=== PATIENT | male | born 1965 | race Two or more races ===

== ENCOUNTER 2021-12-20 21:24 | Inpatient (IN) | payer BC, MEDICAID ==
[~2021-12-20] VITALS: Ht 190.5 cm; Wt 107.5 kg
[2021-12-20] MEDS ORDERED: SODIUM CHLORIDE 0.9% 1,000 ML IV ONE (21:45)
[2021-12-20] MEDS ORDERED: diphenhdrAMINE HCL 50 MG/1 ML VL IM ONE ×2 (21:45)
[2021-12-20] MEDS ORDERED: LORazepam 2MG/ML-1ML VIAL IM ONE ×2 (21:45)
[2021-12-20] MEDS ORDERED: LORazepam 2MG/ML-1ML VIAL IV ONE (22:45)
[2021-12-20 22:50] LABS: Basophils # (auto) 0.1 10 ^3/uL (0-0.2); Basophils % (auto) 0.5 % (0.0-2.0); Eosinophils # (auto) 0.1 10 ^3/uL (0-0.8); Eosinophils % (auto) 0.5 % (0.0-7.0); Hematocrit 38.3 % (41.0-53.0); Hemoglobin 13.4 g/dL (13.5-17.5); Lymphocytes # (auto) 0.7 10 ^3/uL (0.4-5.4); Lymphocytes % (auto) 6.5 % (10.0-50.0); Mean Corpuscular Hemoglobin 30.2 pg (28.0-32.0); Mean Corpuscular Volume 86.3 fL (80.0-100.0); Monocytes # (auto) 0.6 10 ^3/uL (0-1.3); Neutrophils # (auto) 9.4 10 ^3/uL (1.6-8.6); Neutrophils % (auto) 86.5 % (37.0-80.0); Nucleated Red Blood Cells % 0.1 %; Red Blood Cells 4.43 10^6/uL (4.5-5.90); Red Cell Distribution Width 13.3 % (11.8-14.3); White Blood Cell 10.9 10^3/uL (4.4-10.8)
[2021-12-20 23:11] LABS: Albumin 3.3 g/dL (3.4-5.0); Anion Gap 5 (5-15); Blood Alcohol < 3.0 mg/dL (0-5); Blood Urea Nitrogen 13 mg/dL (7-18); Calcium 8.7 mg/dL (8.5-10.1); Carbon Dioxide 26 mmol/L (21-32); Chloride 105 mmol/L (98-107); Glucose 152 mg/dL (74-106); Potassium 3.7 mmol/L (3.5-5.1); Sodium 136 mmol/L (136-145)
[2021-12-20 23:13] LABS: Alanine Aminotransferase 83 U/L (16-61); Aspartate Aminotransferase 75 U/L (15-37); BUN/Creatinine Ratio 19.4; GFR African American 158 mL/min; GFR Non-African American 131 mL/min
[2021-12-20 23:16] LABS: Alkaline Phosphatase 67 U/L (45-117); Bilirubin, Total 0.8 mg/dL (0.2-1.0); Total Protein 6.8 g/dL (6.4-8.2)
[2021-12-21 00:09] LABS: Alcohol, Urine < 3.0 mg/dL (0-10); Amphetamine Screen, Urine POSITIVE (NEGATIVE); Barbiturate Scree,Urine NEGATIVE (NEGATIVE); Benzodiazephine Screen, Urine NEGATIVE (NEGATIVE); Cocaine Screen, Urine NEGATIVE (NEGATIVE); Phencyclidine Screen, Urine NEGATIVE (NEGATIVE)
[2021-12-21] MEDS ORDERED: TETANUS-DIPTH-ACEL PERTUSSIS 0.5ML SYR Tdap IM ONE (00:15)
[2021-12-21] MEDS ORDERED: LIDOCAINE 1% HCL (LOCAL ANESTH.) INJ 20ML MDV ID ONE (00:15)
[2021-12-21] MEDS ORDERED: ceFAZolin 1GM/50ML 50 ML IV ONE (00:15)
[2021-12-21 00:17] LABS: Cannabinoid Screen, Urine POSITIVE (NEGATIVE); Opiate Scree,Urine NEGATIVE (NEGATIVE)
[2021-12-21] MEDS ORDERED: diphenhdrAMINE HCL 50 MG/1 ML VL IV ONE (00:45)
[2021-12-21] MEDS ORDERED: LORazepam 2MG/ML-1ML VIAL IV ONE ×2 (00:45→02:15)
[2021-12-21] MEDS ORDERED: MORPHINE SULFATE INJECTION 2 MG/ML SYRG IV ONE (00:45)
[2021-12-21] MEDS ORDERED: HALOPERIDOL LACTATE 5 MG/ML INJ VIAL IM ONE (03:15)
[2021-12-22 18:16] LABS: Alcohol, Urine < 3.0 mg/dL (0-10); Amphetamine Screen, Urine POSITIVE (NEGATIVE); Barbiturate Scree,Urine NEGATIVE (NEGATIVE); Benzodiazephine Screen, Urine NEGATIVE (NEGATIVE); Cannabinoid Screen, Urine NEGATIVE (NEGATIVE); Cocaine Screen, Urine NEGATIVE (NEGATIVE); Opiate Scree,Urine NEGATIVE (NEGATIVE); Phencyclidine Screen, Urine NEGATIVE (NEGATIVE)
[2021-12-23] MEDS ORDERED: MORPHINE SULFATE INJECTION 2 MG/ML SYRG IV PRN (12:30)
[2021-12-23] MEDS ORDERED: NITROGLYCERIN 0.4 MG SL TAB SL PRN (12:30)
[2021-12-23] MEDS ORDERED: LORazepam 2MG/ML-1ML VIAL IV PRN (12:30)
[2021-12-23] MEDS ORDERED: hydrALAZINE HCL 20 MG/ML VL IV PRN (13:30)
[2021-12-23] MEDS ORDERED: LACTULOSE 20Gm/30ML SOLN PO PRN (13:30)
[2021-12-23] MEDS ORDERED: AMPICILLIN & SULBACTAM SODIUM 3 GM in SODIUM CHL 0.9% 100 ML IV SCH (13:30)
[2021-12-23] MEDS ORDERED: ONDANSETRON HCL 4 MG/2 ML VIAL IV PRN (13:30)
[2021-12-23] MEDS ORDERED: DOCUSATE SOD 100 MG CAP PO PRN (13:30)
[2021-12-23] MEDS ORDERED: IPRATROPIUM BROM 0.5 MG/2.5ML INH SOL NEB SCH (14:00)
[2021-12-23 14:28] VITALS: BP 99/43
[2021-12-23 15:15] LABS: Magnesium 2.1 mg/dL (1.6-2.6); Phosphorus 3.2 mg/dL (2.5-4.90)
[2021-12-23] MEDS ORDERED: BUDESONIDE (INHALATION) 0.5 MG/2 ML NEB NEB ONE (15:30)
[2021-12-23] MEDS ORDERED: ALBUTEROL SULF 2.5 MG/0.5ML(0.5%) NEB SOLN NEB ONE (15:30)
[2021-12-23] MEDS ORDERED: FOLIC ACID 1 MG TAB PO ONE (15:45)
[2021-12-23] MEDS ORDERED: HYDROcodone-ACET 5/325MG TAB PO ONE (15:45)
[2021-12-23] MEDS ORDERED: IPRATROPIUM BROM 0.5 MG/2.5ML INH SOL NEB ONE (15:45)
[2021-12-23] MEDS: SODIUM CHLORIDE 0.9% 1,000 ML IV SCH (15:50)
[2021-12-23 15:55] LABS: INR 1.09 (0.9-1.15)
[2021-12-23] MEDS ORDERED: MONTELUKAST SODIUM 10 MG TAB PO ONE (16:00)
[2021-12-23] MEDS ORDERED: MORPHINE SULFATE 4 MG/ML SYR/VIAL IV PRN (16:00)
[2021-12-23] MEDS ORDERED: THIAMINE 100mg/ml INJ (200mg/2ml VIAL) IV ONE (16:00)
[2021-12-23] MEDS ORDERED: SUCRALFATE 1 GM/10 ML ORAL SUSP PO ONE (16:00)
[2021-12-23] MEDS ORDERED: CLINDAMYCIN 600MG IV 50 ML IV ONE (16:00)
[2021-12-23] MEDS ORDERED: FAMOTIDINE (10MG/ML) 2ML VL IV ONE (16:00)
[2021-12-23] MEDS: BUDESONIDE (INHALATION) 0.5 MG/2 ML NEB NEB SCH (18:21)
[2021-12-23] MEDS: cefTRIAXone 1GM/50ML D5W 50 ML IV SCH ×2 (22:00→22:40)
[2021-12-23] MEDS: ATORVASTATIN 20 MG TAB PO SCH (22:00)
[2021-12-23] MEDS: SUCRALFATE 1 GM/10 ML ORAL SUSP PO SCH (22:00)
[2021-12-23 22:20] VITALS: BP 117/75
[2021-12-23 22:30] VITALS: BP 117/75
[2021-12-23] MEDS: CLINDAMYCIN 600MG IV 50 ML IV SCH (22:40)
[2021-12-24 05:00] VITALS: BP 115/70
[2021-12-24 05:29] LABS: Basophils # (auto) 0 10 ^3/uL (0-0.2); Basophils % (auto) 0.3 % (0.0-2.0); Eosinophils # (auto) 0.2 10 ^3/uL (0-0.8); Eosinophils % (auto) 2.5 % (0.0-7.0); Hematocrit 38.2 % (41.0-53.0); Hemoglobin 13.4 g/dL (13.5-17.5); Lymphocytes # (auto) 1.7 10 ^3/uL (0.4-5.4); Lymphocytes % (auto) 19.9 % (10.0-50.0); Mean Corpuscular Hgb Conc. 34.9 g/dL (32.0-36.0); Mean Corpuscular Volume 85.8 fL (80.0-100.0); Monocytes % (auto) 11.1 % (0.0-12.0); Neutrophils # (auto) 5.8 10 ^3/uL (1.6-8.6); Neutrophils % (auto) 66.2 % (37.0-80.0); Nucleated Red Blood Cells % 0.3 %; Red Blood Cells 4.45 10^6/uL (4.5-5.90); Red Cell Distribution Width 13.3 % (11.8-14.3); White Blood Cell 8.7 10^3/uL (4.4-10.8)
[2021-12-24 05:44] LABS: INR 1.09 (0.9-1.15); Partial Thromboplastin Time 25.5 sec (23.6-33.0)
[2021-12-24 05:47] LABS: Calcium 8.5 mg/dL (8.5-10.1); Magnesium 2.2 mg/dL (1.6-2.6); Potassium 3.8 mmol/L (3.5-5.1)
[2021-12-24 05:56] LABS: BUN/Creatinine Ratio 21.9; CRP High Sensitivity 3.76 mg/dL (< 0.3); Phosphorus 3.4 mg/dL (2.5-4.90); Total Protein 7.2 g/dL (6.4-8.2)
[2021-12-24] MEDS: CLINDAMYCIN 600MG IV 50 ML IV SCH ×3 (06:00→23:57)
[2021-12-24] MEDS: SUCRALFATE 1 GM/10 ML ORAL SUSP PO SCH ×4 (06:47→23:58)
[2021-12-24 08:00] VITALS: BP 130/60
[2021-12-24] MEDS: BUDESONIDE (INHALATION) 0.5 MG/2 ML NEB NEB SCH ×2 (08:49→19:21)
[2021-12-24] MEDS: IPRATROPIUM BROM 0.5 MG/2.5ML INH SOL NEB PRN ×2 (08:50→19:22)
[2021-12-24 09:00] VITALS: BP 116/42
[2021-12-24] MEDS: CHOLECALCIFEROL (VITD3) 2,000 UNIT CAP/TAB PO SCH (09:46)
[2021-12-24] MEDS: THIAMINE HCL 100 MG TAB PO SCH (09:46)
[2021-12-24] MEDS: CYANOCOBALAMIN 500 MCG TAB PO SCH (09:46)
[2021-12-24] MEDS: ASPirin 81 mg TAB PO SCH (09:47)
[2021-12-24] MEDS: ENOXAPARIN SOD 40 MG/0.4 ML SYRINGE SC SCH (09:47)
[2021-12-24] MEDS: FOLIC ACID 1 MG TAB PO SCH (09:47)
[2021-12-24] MEDS: FAMOTIDINE (10MG/ML) 2ML VL IV SCH (09:48)
[2021-12-24] MEDS: SODIUM CHLORIDE 0.9% 1,000 ML IV SCH (09:48)
[2021-12-24 11:26] LABS: Hepatitis A Ab IgM Negative; Hepatitis B Core IgM Negative
[2021-12-24 11:28] LABS: Hepatitis C Antibody Positive (Negative)
[2021-12-24 13:00] VITALS: BP 135/55
[2021-12-24] MEDS: HYDROcodone-ACET 5/325MG TAB PO PRN (14:13)
[2021-12-24 17:00] VITALS: BP 139/84
[2021-12-24] MEDS: ALBUTEROL SULF 2.5 MG/0.5ML(0.5%) NEB SOLN NEB PRN (19:22)
[2021-12-24 22:00] VITALS: BP 164/135
[2021-12-24] MEDS: ATORVASTATIN 20 MG TAB PO SCH (23:58)
[2021-12-25] MEDS: MONTELUKAST SODIUM 10 MG TAB PO SCH ×2 (00:01→23:24)
[2021-12-25] MEDS: SODIUM CHLORIDE 0.9% 1,000 ML IV SCH ×2 (00:50→17:51)
[2021-12-25 05:00] VITALS: BP 125/69
[2021-12-25 08:00] VITALS: BP 126/72
[2021-12-25 08:51] VITALS: BP 98/53
[2021-12-25] MEDS: SUCRALFATE 1 GM/10 ML ORAL SUSP PO SCH ×4 (08:53→23:24)
[2021-12-25] MEDS: CYANOCOBALAMIN 500 MCG TAB PO SCH (10:03)
[2021-12-25] MEDS: THIAMINE HCL 100 MG TAB PO SCH (10:03)
[2021-12-25] MEDS: FOLIC ACID 1 MG TAB PO SCH (10:03)
[2021-12-25] MEDS: ASPirin 81 mg TAB PO SCH (10:04)
[2021-12-25] MEDS: FAMOTIDINE (10MG/ML) 2ML VL IV SCH (10:04)
[2021-12-25] MEDS: ENOXAPARIN SOD 40 MG/0.4 ML SYRINGE SC SCH (10:04)
[2021-12-25] MEDS: CHOLECALCIFEROL (VITD3) 2,000 UNIT CAP/TAB PO SCH (10:10)
[2021-12-25] MEDS: BUDESONIDE (INHALATION) 0.5 MG/2 ML NEB NEB SCH ×2 (11:22→18:04)
[2021-12-25 13:00] VITALS: BP 126/72
[2021-12-25 17:00] VITALS: BP 135/71
[2021-12-25] MEDS: IPRATROPIUM BROM 0.5 MG/2.5ML INH SOL NEB PRN (18:04)
[2021-12-25] MEDS: ALBUTEROL SULF 2.5 MG/0.5ML(0.5%) NEB SOLN NEB PRN (18:04)
[2021-12-25 22:00] VITALS: BP 148/61
[2021-12-25] MEDS: CLINDAMYCIN 600MG IV 50 ML IV SCH ×2 (23:23→23:27)
[2021-12-25] MEDS: cefTRIAXone 1GM/50ML D5W 50 ML IV SCH (23:24)
[2021-12-25] MEDS: ATORVASTATIN 20 MG TAB PO SCH (23:24)
[2021-12-26] VITALS (7 sets, daily range): BP systolic 95–148; BP diastolic 59–79
[2021-12-26] MEDS: CLINDAMYCIN 600MG IV 50 ML IV SCH ×3 (05:43→21:52)
[2021-12-26] MEDS: SUCRALFATE 1 GM/10 ML ORAL SUSP PO SCH ×4 (06:01→21:57)
[2021-12-26] MEDS: BUDESONIDE (INHALATION) 0.5 MG/2 ML NEB NEB SCH ×2 (06:15→21:48)
[2021-12-26] MEDS: FAMOTIDINE (10MG/ML) 2ML VL IV SCH (09:24)
[2021-12-26] MEDS: ASPirin 81 mg TAB PO SCH (09:24)
[2021-12-26] MEDS: FOLIC ACID 1 MG TAB PO SCH (09:26)
[2021-12-26] MEDS: THIAMINE HCL 100 MG TAB PO SCH (09:27)
[2021-12-26] MEDS: CYANOCOBALAMIN 500 MCG TAB PO SCH (09:27)
[2021-12-26] MEDS: CHOLECALCIFEROL (VITD3) 2,000 UNIT CAP/TAB PO SCH (09:27)
[2021-12-26] MEDS: ENOXAPARIN SOD 40 MG/0.4 ML SYRINGE SC SCH (09:28)
[2021-12-26] MEDS: SODIUM CHLORIDE 0.9% 1,000 ML IV SCH (09:28)
[2021-12-26] MEDS: LORazepam 0.5 MG TAB PO PRN ×2 (11:32→21:59)
[2021-12-26] MEDS: HYDROcodone-ACET 5/325MG TAB PO PRN ×2 (14:33→21:59)
[2021-12-26] MEDS ORDERED: MULT1TAB95 PO (20:38)
[2021-12-26] MEDS ORDERED: DIVA500T2 PO (20:38)
[2021-12-26] MEDS ORDERED: BEN2I IM (20:38)
[2021-12-26] MEDS ORDERED: LISI2.5T47 PO (20:38)
[2021-12-26] MEDS ORDERED: CLON1TAB PO (20:38)
[2021-12-26] MEDS ORDERED: ARIP1TAB7 PO (20:38)
[2021-12-26] MEDS: cefTRIAXone 1GM/50ML D5W 50 ML IV SCH (21:56)
[2021-12-26] MEDS: ATORVASTATIN 20 MG TAB PO SCH (21:57)
[2021-12-26] MEDS: MONTELUKAST SODIUM 10 MG TAB PO SCH (21:57)
[2021-12-27 04:43] VITALS: BP 120/70
[2021-12-27 05:13] LABS: Basophils # (auto) 0 10 ^3/uL (0-0.2); Basophils % (auto) 0.6 % (0.0-2.0); Eosinophils # (auto) 0.3 10 ^3/uL (0-0.8); Eosinophils % (auto) 5.6 % (0.0-7.0); Hematocrit 37.1 % (41.0-53.0); Hemoglobin 13.2 g/dL (13.5-17.5); Lymphocytes # (auto) 1.4 10 ^3/uL (0.4-5.4); Lymphocytes % (auto) 24.7 % (10.0-50.0); Mean Corpuscular Hemoglobin 30.3 pg (28.0-32.0); Mean Corpuscular Hgb Conc. 35.6 g/dL (32.0-36.0); Monocytes # (auto) 0.7 10 ^3/uL (0-1.3); Monocytes % (auto) 11.5 % (0.0-12.0); Neutrophils # (auto) 3.3 10 ^3/uL (1.6-8.6); Neutrophils % (auto) 57.6 % (37.0-80.0); Red Blood Cells 4.37 10^6/uL (4.5-5.90); Red Cell Distribution Width 13.2 % (11.8-14.3); White Blood Cell 5.8 10^3/uL (4.4-10.8)
[2021-12-27 05:30] LABS: Albumin 2.9 g/dL (3.4-5.0); Calcium 8.1 mg/dL (8.5-10.1); Potassium 3.9 mmol/L (3.5-5.1)
[2021-12-27 05:35] LABS: BUN/Creatinine Ratio 24.6; Bilirubin, Total 0.6 mg/dL (0.2-1.0); Total Protein 6.8 g/dL (6.4-8.2)
[2021-12-27] MEDS: CLINDAMYCIN 600MG IV 50 ML IV SCH ×3 (05:57→21:00)
[2021-12-27] MEDS: BUDESONIDE (INHALATION) 0.5 MG/2 ML NEB NEB SCH ×2 (05:58→19:57)
[2021-12-27] MEDS: SODIUM CHLORIDE 0.9% 1,000 ML IV SCH ×2 (06:53→19:30)
[2021-12-27] MEDS: SUCRALFATE 1 GM/10 ML ORAL SUSP PO SCH ×4 (06:54→20:26)
[2021-12-27 08:20] VITALS: BP 144/75
[2021-12-27] MEDS: FAMOTIDINE (10MG/ML) 2ML VL IV SCH (09:31)
[2021-12-27] MEDS: ASPirin 81 mg TAB PO SCH (09:31)
[2021-12-27] MEDS: CYANOCOBALAMIN 500 MCG TAB PO SCH (09:32)
[2021-12-27] MEDS: CHOLECALCIFEROL (VITD3) 2,000 UNIT CAP/TAB PO SCH (09:32)
[2021-12-27] MEDS: ENOXAPARIN SOD 40 MG/0.4 ML SYRINGE SC SCH (09:32)
[2021-12-27] MEDS: FOLIC ACID 1 MG TAB PO SCH (09:32)
[2021-12-27] MEDS: THIAMINE HCL 100 MG TAB PO SCH (09:32)
[2021-12-27 13:00] VITALS: BP 115/77
[2021-12-27 16:35] VITALS: BP 144/80
[2021-12-27] MEDS: IPRATROPIUM BROM 0.5 MG/2.5ML INH SOL NEB PRN (19:57)
[2021-12-27] MEDS: ALBUTEROL SULF 2.5 MG/0.5ML(0.5%) NEB SOLN NEB PRN (19:57)
[2021-12-27] MEDS: cefTRIAXone 1GM/50ML D5W 50 ML IV SCH (20:26)
[2021-12-27] MEDS: LORazepam 0.5 MG TAB PO PRN (20:27)
[2021-12-27] MEDS: ATORVASTATIN 20 MG TAB PO SCH (20:27)
[2021-12-27] MEDS: MONTELUKAST SODIUM 10 MG TAB PO SCH (20:27)
[2021-12-27] MEDS: HYDROcodone-ACET 5/325MG TAB PO PRN (21:01)
[2021-12-27 22:00] VITALS: BP 110/63
[2021-12-28] MEDS: LORazepam 0.5 MG TAB PO PRN (04:16)
[2021-12-28 04:17] VITALS: BP 134/74
[2021-12-28] MEDS: CLINDAMYCIN 600MG IV 50 ML IV SCH (05:29)
[2021-12-28] MEDS: SUCRALFATE 1 GM/10 ML ORAL SUSP PO SCH (06:02)
[2021-12-28] MEDS: IPRATROPIUM BROM 0.5 MG/2.5ML INH SOL NEB PRN (06:04)
[2021-12-28] MEDS: BUDESONIDE (INHALATION) 0.5 MG/2 ML NEB NEB SCH (06:04)
[2021-12-28] MEDS: ALBUTEROL SULF 2.5 MG/0.5ML(0.5%) NEB SOLN NEB PRN (06:04)
[2021-12-28 08:00] VITALS: BP 134/75
== END 2021-12-28 09:38 | disposition left against medical advice (07) | DRG 500 ==
LOC: EDBD 21:24 → ER 21:29 → CENTRAL 12-21 16:57 → TELE 12-23 12:22 → CENTRAL 12-23 21:56
PROVIDERS: ADMIT Hospitalist; ATTEND Internal Medicine
PROC: 0JQ10ZZ Repair Face Subcutaneous Tissue and Fascia, Open Approach (ICD-10-PCS; principal; 2021-12-23)
DX: S52.332A Displaced oblique fracture of shaft of left radius, initial encounter for closed fracture (principal); G93.41 Metabolic encephalopathy; E44.1 Mild protein-calorie malnutrition; F10.239 Alcohol dependence with withdrawal, unspecified; J98.11 Atelectasis; S01.311A Laceration without foreign body of right ear, initial encounter; E78.5 Hyperlipidemia, unspecified; F12.90 Cannabis use, unspecified, uncomplicated; Z20.822 Contact with and (suspected) exposure to COVID-19; F17.210 Nicotine dependence, cigarettes, uncomplicated; S01.01XA Laceration without foreign body of scalp, initial encounter; F15.10 Other stimulant abuse, uncomplicated; F25.9 Schizoaffective disorder, unspecified; I50.9 Heart failure, unspecified; W18.30XA Fall on same level, unspecified, initial encounter; S09.90XA Unspecified injury of head, initial encounter; R74.01 Elevation of levels of liver transaminase levels; Z68.29 Body mass index [BMI] 29.0-29.9, adult; Z59.00 Homelessness unspecified; Y93.89 Activity, other specified; Y92.89 Other specified places as the place of occurrence of the external cause; Y99.8 Other external cause status
CPT/HCPCS: 12002; 12013; 12015; 36415; 36600; 70450; 71045; 72125; 73090; 73110; 80053; 80061; 80074; 80307; 80320; 82550; 82728; 82805; 83036; 83615; 83690; 83735; 83880; 84100; 84443; 84484; 85025; 85379; 85610; 85652; 85730; 86141; 86703; 87040; 90471; 90715; 93306; 94640; 96361; 96365; 96372; 96375; 96376; G0378; J0690; J0696; J2001; J3490